=== PATIENT | female | born 1980 | race Two or more races ===

== ENCOUNTER 2017-07-19 01:13 | Inpatient (IN) | payer OTHER ==
[2017-07-19] MEDS ORDERED: Morphine 2 MG/ML Syringe IVPUSH PRN (02:46)
[2017-07-19] MEDS ORDERED: Acetaminophen 650 MG Supp RECTAL PRN (02:46)
[2017-07-19] MEDS ORDERED: Promethazine 12.5 MG in Sodium Chloride 0.9% 50 ML IV PRN (02:46)
[2017-07-19] MEDS ORDERED: Ondansetron 4 MG/2 ML SDV IV PRN (02:46)
[2017-07-19] MEDS ORDERED: Albuterol 0.083% 2.5 MG/3 ML Neb Soln NEB PRN (02:46)
[2017-07-19] MEDS ORDERED: NS + KCl 20mEq/L 1,000 ML IV SCH (03:00)
[2017-07-19] MEDS ORDERED: HYDROmorphone 1 MG/ML Syringe IVPUSH PRN (03:03)
[2017-07-19] MEDS: Pantoprazole 40 MG Vial IVPUSH SCH ×2 (03:32→15:37)
[2017-07-19] MEDS: NS + KCl 20mEq/L 1,000 ML IV SCH ×3 (05:29→15:37)
[2017-07-19] MEDS: Enoxaparin 40 MG/0.4 ML Syringe SUBCUT SCH (08:58)
[2017-07-19] MEDS ORDERED: oxyCODONE 5 MG Tab PO PRN (16:26)
--- NOTE | 2017-07-19 16:35 | PCM.PN ---
- General Info Date of Service: 07/19/17 Subjective Update: This patient is a 37-year-old woman who was admitted as a direct admission from the [place] emergency department by Dr. Lr. She developed epigastric abdominal pain yesterday afternoon that worsened into the evening. She was evaluated in the emergency department in [place]. Lipase level was elevated at [address] scan of the abdomen and pelvis showed evidence of inflammation and thickening of the duodenum. When repeated this morning her lipase level was down to 400 and this afternoon she reports that her pain is much better although has not totally resolved. She is currently not experiencing significant nausea or vomiting. Functional Status: Reports: Pain Controlled, Ambulating - Review of Systems General: Denies: Fever, Chills Pulmonary: Reports: No Symptoms Cardiovascular: Reports: No Symptoms Gastrointestinal: Reports: Abdominal Pain. Denies: Nausea, Vomiting - Patient Data Vitals - Most Recent: Last Vital Signs Temp 98.6 F 07/19/17 15:40 Pulse 61 07/19/17 15:40 Resp 16 07/19/17 15:40 BP 129/65 07/19/17 15:40 Pulse Ox 97 07/19/17 15:40 Weight - Most Recent: 180 lb 0.013 oz I&O - Last 24 Hours: Intake & Output 07/19/17 07/19/17 07/19/17 06:59 14:59 22:59 Intake Total 1131 Output Total 300 925 Balance 831 -925 Lab Results Last 24 Hours: Laboratory Results - last 24 hr 07/19/17 07/19/17 Range/Units 05:40 05:40 WBC 7.4 (4.5-11.0) K/uL RBC 4.12 (3.30-5.50) M/uL Hgb 12.0 (12.0-15.0) g/dL Hct 37.1 (36.0-48.0) % MCV 90 (80-98) fL MCH 29 (27-31) pg MCHC 32 (32-36) % Plt Count 197 (150-400) K/uL Neut % (Auto) 66 (36-66) % Lymph % (Auto) 26 (24-44) % [place] % (Auto) 7 H (2-6) % Eos % (Auto) 1 L (2-4) % Baso % (Auto) 0 (0-1) % Sodium 142 (140-148) mmol/L Potassium 4.0 (3.6-5.2) mmol/L Chloride 108 (100-108) mmol/L Carbon Dioxide 28 (21-32) mmol/L Anion Gap 6.4 (5.0-14.0) mmol/L BUN 11 (7-18) mg/dL Creatinine 0.7 (0.6-1.0) mg/dL Est Cr Clr Drug Dosing 94.10 mL/min Estimated GFR (MDRD) > 60 (>60) Glucose 88 (74-106) mg/dL Calcium 7.7 L (8.5-10.1) mg/dL Magnesium 1.9 (1.8-2.4) mg/dL Total Bilirubin 0.4 (0.2-1.0) mg/dL AST 12 L (15-37) U/L ALT 20 (12-78) U/L Alkaline Phosphatase 71 (46-116) U/L Total Protein 5.5 L (6.4-8.2) g/dL Albumin 2.8 L (3.4-5.0) g/dL Globulin 2.7 (2.3-3.5) g/dL Albumin/Globulin Ratio 1.0 L (1.2-2.2) Triglycerides 47 (15-150) mg/dL Cholesterol 127 (0-200) mg/dL LDL Cholesterol Direct 83 (0-100) mg/dL HDL Cholesterol 40 (40-60) mg/dL Lipase 409 H (73-393) U/L TSH, Ultra Sensitive 3.672 (0.358-3.740) uIU/mL Med Orders - Current: Current Medications Acetaminophen (Tylenol) 650 mg RECTAL Q4H PRN PRN Reason: Mild pain/fever Albuterol (Proventil Neb Soln) 2.5 mg NEB Q4H PRN PRN Reason: Shortness Of Breath/wheezing Enoxaparin Sodium (Lovenox) 40 mg SUBCUT DAILY [facility] Last Admin: 07/19/17 08:58 Dose: 40 mg Hydromorphone HCl (Dilaudid) 1 mg IVPUSH Q3H PRN PRN Reason: Abdominal Pain Promethazine HCl 12.5 mg/ (Sodium Chloride) 50.5 mls @ 200 mls/hr IV Q6H PRN PRN Reason: Nausea/Vomiting Levothyroxine Sodium (Levothyroxine) 25 mcg PO ACBREAKFAST [facility] Loratadine (Claritin) 10 mg PO DAILY [facility] Ondansetron HCl (Zofran) 4 mg IV Q4H PRN PRN Reason: Nausea/Vomiting Oxycodone HCl (Oxycodone) 10 mg PO Q4H PRN PRN Reason: Pain Pantoprazole Sodium (Protonix Iv) 40 mg IVPUSH Q12H [facility] Last Admin: 07/19/17 15:37 Dose: 40 mg Discontinued Medications Potassium Chloride/Sodium Chloride (Normal Saline With 20 Meq Kcl) 1,000 mls @ 500 mls/hr IV ASDIRECTED [facility] Stop: 07/19/17 05:30 Last Admin: 07/19/17 03:32 Dose: 500 mls/hr Potassium Chloride/Sodium Chloride (Normal Saline With 20 Meq Kcl) 1,000 mls @ 200 mls/hr IV ASDIRECTED [facility] Last Admin: 07/19/17 15:37 Dose: 200 mls/hr Morphine Sulfate (Morphine) 2 mg IVPUSH Q2H PRN PRN Reason: Pain (severe 7-10) - Exam Quality Assessment: DVT Prophylaxis General: Alert, Oriented, Mild Distress Lungs: Clear to Auscultation, Normal Respiratory Effort Cardiovascular: Regular Rate, Regular Rhythm, No Murmurs GI/Abdominal Exam: Soft, Non-Tender, No Organomegaly, No Distention Extremities: Non-Tender, No Pedal Edema Skin: Warm, Dry, Intact - Problem List Review Problem List Initiated/Reviewed/Updated: Yes - My Orders Last 24 Hours: My Active Orders 07/19/17 16:25 Convert IV to Saline Lock [OM.PC] Routine 07/19/17 16:26 oxyCODONE 10 mg PO Q4H PRN 07/19/17 16:30 Loratadine [Claritin] 10 mg PO DAILY 07/19/17 Dinner Regular Diet [DIET] 07/20/17 05:00 BASIC METABOLIC PANEL,BMP [CHEM] Timed CBC WITH AUTO DIFF [HEME] Timed LIPASE [CHEM] Timed 07/20/17 07:30 Levothyroxine 25 mcg PO ACBREAKFAST - Plan Plan:: ASSESSMENT AND PLAN PANCREATITIS-likely a significant cause of her epigastric supraumbilical pain. Specific etiology not apparent, there is no history of significant alcohol use or associated liver enzyme elevation. She is status post cholecystectomy and her lipid profile is within normal range. She is on minimal medications, neither of which are likely to have caused pancreatitis. -Regular diet -Repeat lipase level in a.m. ENTERITIS-duodenal inflammation noted on CT scan. She has received IV Protonix since admission 40 mg twice daily. No evidence of underlying infection, white blood cell count is normal and she has been afebrile. -Continue IV Protonix -Saline lock IV MAINTENANCE ISSUES -DVT prophylaxis; Lovenox 40 mg subcutaneous daily -GI prophylaxis; Protonix as above -Serrano catheter; not indicated -Nutrition; regular diet -Nicotine dependence; not required CODE STATUS-FULL CODE ADMISSION STATUS-patient will be admitted to inpatient status, expect at least a 2 night hospital stay for evaluation and management of problems as outlined above. At the time of this admission I do not reasonably expected evaluation and management of this problem will require more than a 96 hour hospital stay. DISPOSITION-anticipate discharge to home after the hospital stay. PRIMARY CARE PROVIDER-
[2017-07-19] MEDS: Loratadine 10 MG Tab PO SCH (17:58)
[2017-07-20] MEDS: Pantoprazole 40 MG Vial IVPUSH SCH (03:16)
[2017-07-20] MEDS ORDERED: Levothyroxine 25 MCG Tab PO SCH (07:30)
[2017-07-20] MEDS: Loratadine 10 MG Tab PO SCH (08:28)
[2017-07-20] MEDS: Enoxaparin 40 MG/0.4 ML Syringe SUBCUT SCH (08:28)
--- NOTE | 2017-07-20 08:30 | PCM.HP ---
H&P History of Present Illness - General Date of Service: 07/19/17 Admit Problem/Dx: Admission Diagnosis/Problem Admission Diagnosis/Problem Acute pancreatitis Source of Information: Patient History Limitations: Reports: No Limitations - History of Present Illness Initial Comments - Free Text/Narative: 37-year-old female with past medical history of lactose intolerance, status post cholecystectomy, uterine prolapse status post hysterectomy, hypothyroidism transferred to [facility] from [facility] with the concerns of acute pancreatitis. Patient reports that she developed abdominal pain since yesterday which is gradual in onset associated with nausea but denies any vomiting. Patient went to the [facility] and the investigation showed lipase levels are elevated. She was diagnosed with acute pancreatitis transferred here for further management Patient denies any recent fever, sick contacts. Patient has previous history of lactose intolerance last milk intake was yesterday morning. Patient denies any recent fever, sick contacts. Patient denies any blood in the stool, blood in the urine. Denies any diarrhea, constipations.. Patient is not a smoker, nonalcoholic. Patient had cholecystectomy surgery 15 years ago. Patient denies any change in the color of stool. Patient is full code. Patient received 500 mL of IV fluid bolus in [facility]. Other review of systems are not significant Abdomen Pain Score (Numeric/FACES): 3 - Related Data Allergies/Adverse Reactions: Allergies Allergy/AdvReac Type Severity Reaction Status Date / Time naproxen [From Naprosyn] Allergy Vomiting Verified 07/19/17 02:27 octopus Allergy Nausea and Verified 07/19/17 02:27 Vomiting Home Medications: Home Meds Levothyroxine Sodium [Synthroid] 25 mcg PO ACBREAKFAST 07/19/17 [History] Loratadine 10 mg PO DAILY 07/19/17 [History] Past Medical History Genitourinary History: Reports: Renal Calculus Neurological History: Reports: Migraines Endocrine/Metabolic History: Reports: Hypothyroidism - Past Surgical History Female Surgical History: Reports: Hysterectomy Social & Family History - Family History Family Medical History: Noncontributory - Tobacco Use Smoking Status *Q: Never Smoker - Caffeine Use Caffeine Use: Reports: Tea - Recreational Drug Use Recreational Drug Use: No H&P Review of Systems - Review of Systems: Review Of Systems: See Below General: Denies: Fever, Chills, Malaise, Weakness Pulmonary: Denies: Shortness of Breath, Wheezing, Pleuritic Chest Pain, Cough, Sputum Cardiovascular: Denies: Chest Pain, Palpitations, Dyspnea on Exertion, Orthopnea , PND Gastrointestinal: Reports: Abdominal Pain, Nausea. Denies: Anorexia, Black Stool, Bloody Stool, Constipation, Diarrhea, Vomiting Genitourinary: Denies: Dysuria Musculoskeletal: Denies: Neck Pain, Shoulder Pain, Arm Pain Skin: Denies: Cyanosis, Jaundice Psychiatric: Denies: Confusion, Depression Neurological: Denies: Confusion, Dizziness Hematologic/Lymphatic: Denies: Anemia, Easy Bleeding, Easy Bruising Immunologic: Denies: Anaphylaxis Exam - Exam Exam: See Below - Vital Signs Vital Signs: Last Vital Signs Temp 37.3 C 07/20/17 07:15 Pulse 69 07/20/17 07:15 Resp 16 07/20/17 07:15 BP 117/57 L 07/20/17 07:15 Pulse Ox 95 07/20/17 07:15 Weight: 81.647 kg - Exam Quality Assessment: No: Supplemental Oxygen General: Alert, Oriented HEENT: PERRLA, Conjunctiva Clear Neck: Supple, Trachea Midline Lungs: Clear to Auscultation, Normal Respiratory Effort Cardiovascular: Regular Rate, Regular Rhythm, Normal S1, Normal S2, Irregular Rhythm GI/Abdominal Exam: Normal Bowel Sounds, Soft, Tender. No: Non-Tender, No Organomegaly, No Distention, No Abnormal Bruit, Distended, Guarding, Rigid, Rebound, Abnormal Bowel Sounds, Hernia, Hepatomegaly, Splenomegaly Extremities: Normal Inspection, Normal Range of Motion, Non-Tender, No Pedal Edema - Patient Data Lab Results Last 24 hrs: Laboratory Results - last 24 hr 07/20/17 07/20/17 Range/Units 05:49 05:49 WBC 8.9 (4.5-11.0) K/uL RBC 4.24 (3.30-5.50) M/uL Hgb 12.4 (12.0-15.0) g/dL Hct 38.4 (36.0-48.0) % MCV 91 (80-98) fL MCH 29 (27-31) pg MCHC 32 (32-36) % Plt Count 173 (150-400) K/uL Neut % (Auto) 73 H (36-66) % Lymph % (Auto) 18 L (24-44) % [place] % (Auto) 7 H (2-6) % Eos % (Auto) 1 L (2-4) % Baso % (Auto) 0 (0-1) % Sodium 139 L (140-148) mmol/L Potassium 3.8 (3.6-5.2) mmol/L Chloride 106 (100-108) mmol/L Carbon Dioxide 27 (21-32) mmol/L Anion Gap 9.8 (5.0-14.0) mmol/L BUN 8 (7-18) mg/dL Creatinine 0.7 (0.6-1.0) mg/dL Est Cr Clr Drug Dosing 86.18 mL/min Estimated GFR (MDRD) > 60 (>60) Glucose 87 (74-106) mg/dL Calcium 8.2 L (8.5-10.1) mg/dL Lipase 234 (73-393) U/L Result Diagrams: 07/20/17 05:49 07/20/17 05:49 *Q Meaningful Use (ADM) - VTE *Q VTE Criteria *Q: - Stroke *Q Stroke Criteria *Q: - AMI *Q AMI Criteria *Q: - Problem List (1) Acute pancreatitis SNOMED Code(s): 940411983 ICD Code: K85.90 - ACUTE PANCREATITIS WITHOUT NECROSIS OR INFECTION, UNSP Status: Acute Current Visit: Yes (2) Acute duodenitis SNOMED Code(s): 349228692 ICD Code: K29.80 - DUODENITIS WITHOUT BLEEDING Status: Acute Current Visit: Yes (3) Nausea SNOMED Code(s): 180518204 ICD Code: R11.0 - NAUSEA Status: Acute Current Visit: Yes (4) Hypothyroid SNOMED Code(s): 04245855 ICD Code: E03.9 - HYPOTHYROIDISM, UNSPECIFIED Status: Acute Current Visit : Yes (5) Abdominal pain SNOMED Code(s): 69588939 ICD Code: R10.9 - UNSPECIFIED ABDOMINAL PAIN Status: Acute Current Visit : Yes (6) GERD (gastroesophageal reflux disease) SNOMED Code(s): 663484136 ICD Code: K21.9 - GASTRO-ESOPHAGEAL REFLUX DISEASE WITHOUT ESOPHAGITIS Status: Acute Current Visit: Yes Problem List Initiated/Reviewed/Updated: Yes Orders Last 24hrs: Active Orders 24 hr Category Date Time Status Regular Diet [DIET] Diet 12/01/17 Dinner Active Enoxaparin [Lovenox] Med 07/19/17 09:00 Active 40 mg SUBCUT DAILY Levothyroxine Med 07/20/17 07:30 Active 25 mcg PO ACBREAKFAST Loratadine [Claritin] Med 07/19/17 16:30 Active 10 mg PO DAILY oxyCODONE Med 07/19/17 16:26 Active 10 mg PO Q4H PRN Convert IV to Saline Lock [OM.PC] Routine Oth 07/19/17 16:25 Ordered Medication Orders Acetaminophen (Tylenol) 650 mg RECTAL Q4H PRN PRN Reason: Mild pain/fever Albuterol (Proventil Neb Soln) 2.5 mg NEB Q4H PRN PRN Reason: Shortness Of Breath/wheezing Enoxaparin Sodium (Lovenox) 40 mg SUBCUT DAILY [facility] Last Admin: 07/19/17 08:58 Dose: 40 mg Hydromorphone HCl (Dilaudid) 1 mg IVPUSH Q3H PRN PRN Reason: Abdominal Pain Promethazine HCl 12.5 mg/ (Sodium Chloride) 50.5 mls @ 200 mls/hr IV Q6H PRN PRN Reason: Nausea/Vomiting Levothyroxine Sodium (Levothyroxine) 25 mcg PO ACBREAKFAST [facility] Last Admin: 07/20/17 07:30 Dose: 25 mcg Loratadine (Claritin) 10 mg PO DAILY [facility] Last Admin: 07/19/17 17:58 Dose: Not Given Ondansetron HCl (Zofran) 4 mg IV Q4H PRN PRN Reason: Nausea/Vomiting Oxycodone HCl (Oxycodone) 10 mg PO Q4H PRN PRN Reason: Pain Last Admin: 07/19/17 20:05 Dose: 10 mg Pantoprazole Sodium (Protonix Iv) 40 mg IVPUSH Q12H [facility] Last Admin: 07/20/17 03:16 Dose: 40 mg Admin: 07/19/17 15:37 Dose: 40 mg Admin: 07/19/17 03:32 Dose: 40 mg Assessment/Plan Comment:: 37-year-old female with past medical history of hypothyroidism, status post cholecystectomy, uterine prolapse status post hysterectomy, GERD transferred to [facility] from [facility] with diagnosis of acute pancreatitis and further management. (1) Acute pancreatitis (2) Acute duodenitis (3) Nausea (5) Abdominal pain CT scan showed duodenal inflammation and no dilatation of common bile duct Lipase levels are elevated Seems like acute pancreatitis Unknown etiology Will place thousand mL of normal saline bolus Maintenance IV fluids 200 mL per hour We'll repeat lipase tomorrow morning Creatinine is at baseline (4) Hypothyroid Will continue home medications (6) GERD (gastroesophageal reflux disease) Pantoprazole IV every 12 hourly with the concerns of duodenitis No infection signs and symptoms are noted during history and physical examination No previous history of ulcers Will see her progress DVT prophylaxis Lovenox 40 mg subcutaneous daily GI prophylaxis pantoprazole twice daily Diet nothing by mouth for now CODE STATUS full code
--- NOTE | 2017-07-20 09:48 | PCM.DCSUM1 ---
Discharge Summary - Hospital Course Brief History: This patient is a 37-year-old woman who was admitted as a direct transfer from the emergency department in [place] with abdominal pain and nausea secondary to duodenitis and pancreatitis. - Discharge Data Discharge Date: 07/20/17 Discharge Disposition: Home, Self-Care 01 Condition: Fair - Discharge Diagnosis/Problem(s) (1) Acute pancreatitis SNOMED Code(s): 782705016 ICD Code: K85.90 - ACUTE PANCREATITIS WITHOUT NECROSIS OR INFECTION, UNSP Status: Acute Current Visit: Yes (2) Acute duodenitis SNOMED Code(s): 530990637 ICD Code: K29.80 - DUODENITIS WITHOUT BLEEDING Status: Acute Current Visit: Yes (3) Nausea SNOMED Code(s): 603396931 ICD Code: R11.0 - NAUSEA Status: Acute Current Visit: Yes - Patient Summary/Data Hospital Course: Ms. Doug [place] is a 37-year-old woman who developed symptoms of abdominal pain in the epigastric and supraumbilical region as well as nausea with vomiting in the late afternoon early evening of the day of admission. Because of persistent and worsening symptoms she presented to the emergency department in [place]. Evaluation there showed elevation in her lipase level at 1200, CT scan abnormality of duodenal inflammation. She was admitted as a direct admission to this facility and given IV fluids for hydration, pain medication as needed, and antiemetic therapy. By the following morning her lipase level had improved to 400 and her pain was significantly better but not totally resolved. She was started on a soft diet which she tolerated and had only mild symptoms on the morning of discharge. On the morning of discharge her lipase level had normalized. She will be discharged home on a soft diet over the next few days. Activity will be as tolerated but she will be off of work until SaturdayJuly 29. She will be on Protonix 40 mg by mouth daily for one month. Follow-up appointment will be scheduled with her primary care provider within one week. - Patient Instructions Diet: Mechanical Soft Activity: As Tolerated Activity, Other: Off work until Saturday, July 29, 2017 Other/Special Instructions: Please schedule follow-up appointment with primary care provider within one week. - Discharge Plan Prescriptions/Med Rec: oxyCODONE 5 mg PO Q4H PRN #12 tablet PRN Reason: Pain Pantoprazole Sodium [Protonix] 40 mg PO DAILY #30 tablet. Home Medications: Home Meds Levothyroxine Sodium [Synthroid] 25 mcg PO ACBREAKFAST 07/19/17 [History] Loratadine 10 mg PO DAILY 07/19/17 [History] Pantoprazole Sodium [Protonix] 40 mg PO DAILY #30 tablet. 07/20/17 [Rx] oxyCODONE 5 mg PO Q4H PRN #12 tablet 07/20/17 [Rx] - Patient Data Vitals - Most Recent: Last Vital Signs Temp 99.2 F 07/20/17 07:15 Pulse 69 07/20/17 07:15 Resp 16 07/20/17 07:15 BP 117/57 L 07/20/17 07:15 Pulse Ox 95 07/20/17 07:15 Weight - Most Recent: 180 lb 0.013 oz I&O - Last 24 hours: Intake & Output 07/19/17 07/20/17 07/20/17 22:59 06:59 14:59 Intake Total 2786 Output Total 1400 875 300 Balance 1386 -875 -300 Lab Results - Last 24 hrs: Laboratory Results - last 24 hr 07/20/17 07/20/17 Range/Units 05:49 05:49 WBC 8.9 (4.5-11.0) K/uL RBC 4.24 (3.30-5.50) M/uL Hgb 12.4 (12.0-15.0) g/dL Hct 38.4 (36.0-48.0) % MCV 91 (80-98) fL MCH 29 (27-31) pg MCHC 32 (32-36) % Plt Count 173 (150-400) K/uL Neut % (Auto) 73 H (36-66) % Lymph % (Auto) 18 L (24-44) % [place] % (Auto) 7 H (2-6) % Eos % (Auto) 1 L (2-4) % Baso % (Auto) 0 (0-1) % Sodium 139 L (140-148) mmol/L Potassium 3.8 (3.6-5.2) mmol/L Chloride 106 (100-108) mmol/L Carbon Dioxide 27 (21-32) mmol/L Anion Gap 9.8 (5.0-14.0) mmol/L BUN 8 (7-18) mg/dL Creatinine 0.7 (0.6-1.0) mg/dL Est Cr Clr Drug Dosing 86.18 mL/min Estimated GFR (MDRD) > 60 (>60) Glucose 87 (74-106) mg/dL Calcium 8.2 L (8.5-10.1) mg/dL Lipase 234 (73-393) U/L Med Orders - Current: Current Medications Acetaminophen (Tylenol) 650 mg RECTAL Q4H PRN PRN Reason: Mild pain/fever Albuterol (Proventil Neb Soln) 2.5 mg NEB Q4H PRN PRN Reason: Shortness Of Breath/wheezing Enoxaparin Sodium (Lovenox) 40 mg SUBCUT DAILY [facility] Last Admin: 07/20/17 08:28 Dose: 40 mg Hydromorphone HCl (Dilaudid) 1 mg IVPUSH Q3H PRN PRN Reason: Abdominal Pain Promethazine HCl 12.5 mg/ (Sodium Chloride) 50.5 mls @ 200 mls/hr IV Q6H PRN PRN Reason: Nausea/Vomiting Levothyroxine Sodium (Levothyroxine) 25 mcg PO ACBREAKFAST [facility] Last Admin: 07/20/17 07:30 Dose: 25 mcg Loratadine (Claritin) 10 mg PO DAILY [facility] Last Admin: 07/20/17 08:28 Dose: 10 mg Ondansetron HCl (Zofran) 4 mg IV Q4H PRN PRN Reason: Nausea/Vomiting Oxycodone HCl (Oxycodone) 10 mg PO Q4H PRN PRN Reason: Pain Last Admin: 07/19/17 20:05 Dose: 10 mg Pantoprazole Sodium (Protonix Iv) 40 mg IVPUSH Q12H [facility] Last Admin: 07/20/17 03:16 Dose: 40 mg Discontinued Medications Potassium Chloride/Sodium Chloride (Normal Saline With 20 Meq Kcl) 1,000 mls @ 500 mls/hr IV ASDIRECTED [facility] Stop: 07/19/17 05:30 Last Admin: 07/19/17 03:32 Dose: 500 mls/hr Potassium Chloride/Sodium Chloride (Normal Saline With 20 Meq Kcl) 1,000 mls @ 200 mls/hr IV ASDIRECTED [facility] Last Admin: 07/19/17 15:37 Dose: 200 mls/hr Morphine Sulfate (Morphine) 2 mg IVPUSH Q2H PRN PRN Reason: Pain (severe 7-10) *Q Meaningful Use (DIS) - VTE *Q VTE Criteria *Q: - Stroke *Q Stroke Criteria *Q: - AMI *Q AMI Criteria *Q:
== END 2017-07-20 10:45 | disposition home or self-care (01) | DRG 440 ==
LOC: JP.MS 01:36
PROVIDERS: ADMIT Family Medicine; ATTEND Hospitalist
DX: K85.90 Acute pancreatitis without necrosis or infection, unspecified (principal); K29.80 Duodenitis without bleeding; R11.0 Nausea; K21.9 Gastro-esophageal reflux disease without esophagitis; E03.9 Hypothyroidism, unspecified; E73.9 Lactose intolerance, unspecified; Z91.013 Allergy to seafood; Z88.8 Allergy status to other drugs, medicaments and biological substances
CPT/HCPCS: 36415; 80048; 80053; 80061; 83690; 83735; 84443; 85025; A9270-GY; C9113; J1650; J3480